=== PATIENT | female | born 1980 | race Caucasian/White ===

== ENCOUNTER 2022-01-31 14:10 | Emergency (ER) | payer MEDICAID, SELFPAY ==
[2022-01-31 14:11] VITALS: BP 184/113; PULSE 114; RESP 16; TEMP 36.3; O2SAT 99; BMI 27.1
--- NOTE | 2022-01-31 14:31 | EX.ED.VIS.HA ---
HPI History of Present Illness Chief Complaint: Headache Informant: patient Onset/Context/Timing Onset: Days (4 days) Context: Gradual Timing: Waxes and wanes Quality -Headache: Positive for Similar Prior Headaches and Throbbing Current Severity: Moderate Maximum Severity: Severe Narrative Narrative: Patient presents with 4-day history of migraine. She has history of similar migraines but states usually do not last this long. She is been trying ibuprofen without improvement. She does note some waxing and waning right vision changes. She has only had 1 prior migraine that resulted in vision change. She denies recent head injury or URI symptoms. [facility] Medical History Migraines Home Medications ciprofloxacin HCl 500 mg PO BID #14 tablet 06/20/17 [Rx Last Taken Unknown] dicyclomine 20 mg PO TIDAC #20 capsule 06/20/17 [Rx Last Taken Unknown] hydrocodone-acetaminophen 1 - 2 tab PO Q4H PRN PRN #12 tablet 06/20/17 [Rx Last Taken Unknown] metronidazole 500 mg PO Q6H #40 tab 06/20/17 [Rx Last Taken Unknown] promethazine 25 mg PO Q6H PRN PRN #10 tablet 06/20/17 [Rx Last Taken Unknown] sumatriptan succinate [Imitrex] See Rx Instructions .ROUTE .COMPLEX #14 tab 01/31/22 [Rx Last Taken Unknown] Allergy/AdvReac Type Severity Reaction Status Date / Time No Known Allergies Allergy Verified 01/31/22 14:11 Social History Smoking Status: Current every day smoker tobacco type: cigarettes ROS ROS ED Constitutional Constitutional ED: Denies chills or fever(s) Eyes Eyes: Reports change in vision ENT ENT ED: Denies sore throat Cardiovascular Cardiovascular: Denies chest pain Respiratory/Chest Respiratory/Chest: Denies cough or dyspnea Gastrointestinal Gastrointestinal: Reports nausea; Denies abdominal pain, diarrhea or vomiting Genitourinary Genitourinary ED: Denies dysuria Musculoskeletal Musculoskeletal: Denies back pain or neck pain Integumentary Denies rash Neurologic Neurologic: Reports headache(s); Denies paresthesias or weakness Psychiatric Psychiatric: Denies anxiety or depression Allergic/Immunologic Allergic/Immunologic ED: Denies urticaria EXAM Physical Exam Const Vital Signs: 01/31/22 14:11 01/31/22 18:04 01/31/22 18:13 Temperature 97.4 F L Temperature Source Temporal Pulse Rate 114 H 87 79 Respiratory Rate 16 18 18 Blood Pressure 184/113 H 164/146 H 159/108 H Blood Pressure Mean 136 152 125 Pulse Ox 99 98 99 Oxygen Delivery Method Room Air Room Air Room Air Positive well nourished and well developed General Appearance ED: well developed HEENT Reports moist mucous membranes Eyes PERRL and EOMs intact bilaterally Neck supple Resp normal respiratory effort and clear to auscultation bilaterally Cardio regular rate and regular rhythm GI non-tender Auscultation: normoactive bowel sounds Palpation: soft Extremity normal to inspection Neuro oriented x3 and no sensory deficits noted Sensorium / Orientation: awake and alert Motor Exam: strength 5/5 throughout Psych mental status grossly normal Skin Lesions: no lesions Rashes: no rashes MDM MDM MDM Narrative Medical decision making narrative: Patient was given Toradol, Reglan, Benadryl, IV fluids. Radiography Diagnostic Testing: Clinical Impression(s) from Imaging Studies Brain CT 01/31/22 15:42 IMPRESSION: Normal unenhanced CT scan of the brain. Electronically Signed: Sd Romero DO at 16:45 EDT Reading Location ID and State: [facility] / [place] Tel [phone], Service support , Treatment and Re-Evaluation Narrative: On repeat evaluation she still reported significant headache but did feel slightly sleepy from the Benadryl. At that time head CT was ordered along with a dose of Solu-Medrol and Depacon. Head CT is unremarkable. After the Solu-Medrol is infused patient reports significant improvement in her headache. She does not want the Depacon infusion. She will be discharged with a prescription for Imitrex that she has done well with this in the past. She is referred to local physician to establish primary care. Discharge Plan Triage Chief Complaint: Headache ED Provider: Heidi Adam Dx/Rx/DC Orders Clinical Impression: Migraine Instructions: ED, Migraine (Classical) Prescriptions: New sumatriptan succinate [Imitrex] 25 mg tablet See Rx Instructions .ROUTE .COMPLEX Qty: 14 RF: 0 No Action ciprofloxacin HCl 500 MG tablet 500 mg PO BID Qty: 14 RF: 0 metronidazole 500 MG tablet 500 mg PO Q6H Qty: 40 RF: 0 promethazine 25 MG tablet 25 mg PO Q6H PRN PRN (Reason: Nausea) Qty: 10 RF: 0 hydrocodone-acetaminophen 1 TABLET tablet 1 - 2 tab PO Q4H PRN PRN (Reason: Pain) Qty: 12 RF: 0 dicyclomine 10 MG capsule 20 mg PO TIDAC Qty: 20 RF: 0 Stand Alone Forms: ED Work / School Excuse Primary Care Provider: Care Physician,No Primary Referrals: Yosi Cooper MD [STAFF PHYSICIAN] - 1-2 Weeks Care Physician,No Primary [Primary Care Provider] - Disposition Disposition: Home, Self Care
[2022-01-31] MEDS: Ketorolac 30 MG/ML Syringe IV (14:50)
[2022-01-31] MEDS: Metoclopramide 10 MG/2 ML Vial IV (14:50)
[2022-01-31] MEDS: 0.9% Normal Saline 1,000 ML 999 ML IV (14:50)
[2022-01-31] MEDS: DiphenhydrAMINE 50 MG/ML Syringe 25 MG IV (14:50)
--- NOTE | 2022-01-31 15:42 | CT_ITS ---
STUDY: CT BRAIN WITHOUT CONTRAST REASON FOR EXAM: Female, 41 years old. Migraine RADIATION DOSAGE (If Supplied By Facility): CTDIvol = ( 44.99 ) mGy, DLP = ( 796.11 ) mGycm TECHNIQUE: Transaxial CT imaging of the brain was performed without administration of intravenous contrast material. Individualized dose optimization techniques were used for this CT. COMPARISON: No relevant priors. FINDINGS: Normal soft tissue structures. Normal calvarium. Normal size ventricles and extra-axial spaces for the patient''s age. Normal white matter tracts of the cerebral hemispheres. Normal basal ganglia and thalami. Normal brainstem. Normal cerebellum. There is no intracranial hemorrhage. There are no findings of an acute ischemic infarction. Left mastoid sinus retention cyst. CT/Brain/Head without Contrast IMPRESSION: Normal unenhanced CT scan of the brain. Electronically Signed: Sd Romero DO at 16:45 EDT ,
[2022-01-31 18:04] VITALS: BP 164/146; PULSE 87; RESP 18; O2SAT 98
[2022-01-31 18:13] VITALS: BP 159/108; PULSE 79; RESP 18; O2SAT 99
[2022-01-31 18:42] VITALS: BP 159/108; PULSE 79; RESP 18; O2SAT 99
== END 2022-01-31 18:43 | disposition home or self-care (01) ==
PROVIDERS: Emergency Provider Emergency Medicine; Visit Provider Emergency Medicine
DX: G43.909 Migraine, unspecified, not intractable, without status migrainosus (principal); F17.210 Nicotine dependence, cigarettes, uncomplicated
CPT/HCPCS: 70450; 96361; 96365; 96366; 96375; 99282; J7030; J2930

== ENCOUNTER 2022-08-13 17:09 | Emergency (ER) | payer MEDICAID, SELFPAY ==
[2022-08-13 17:12] VITALS: BP 171/108; PULSE 149; RESP 18; TEMP 36.7; O2SAT 100; BMI 27.0
--- NOTE | 2022-08-13 17:29 | EX.ED.GENINJ ---
HPI History of Present Illness Chief Complaint: Bite Narrative Narrative: Patient presents with facial lacerations after dog bite. Patient says that the dog bite was unprovoked, was a friend's dog however per paramedics apparently the patient had her hand and the dog's mouth. She tells me she had 1 drink today. No hand injuries or any other injuries. Tetanus is not up-to-date. [facility] Medical History Migraines Home Medications ciprofloxacin HCl 500 mg tablet 500 mg PO BID ##14 06/20/17 [Rx Last Taken Unknown] dicyclomine 10 mg capsule 20 mg PO TIDAC ##20 06/20/17 [Rx Last Taken Unknown] hydrocodone-acetaminophen 5-325mg 5mg-325mg 1 - 2 tab PO Q4H PRN PRN Pain ##12 06/20/17 [Rx Last Taken Unknown] metronidazole 500 mg tablet 500 mg PO Q6H #40 tabs 06/20/17 [Rx Last Taken Unknown] promethazine 25 mg tablet 25 mg PO Q6H PRN PRN Nausea ##10 06/20/17 [Rx Last Taken Unknown] sumatriptan succinate 25 mg tablet (Imitrex) See Rx Instructions PO .COMPLEX #14 tabs 01/31/22 [Rx Last Taken Unknown] amoxicillin 500 mg-potassium clavulanate 125 mg tablet (Augmentin) 1 tab PO Q8H #21 tabs 08/13/22 [Rx Last Taken Unknown] Allergy/AdvReac Type Severity Reaction Status Date / Time No Known Allergies Allergy Verified 08/13/22 17:16 Social History Smoking Status: Current every day smoker tobacco type: cigarettes ROS ROS ED ROS Narrative Social: Noncontributory Medications: Reviewed Past medical history: Reviewed Review of systems General: Patient has no head injury or loss of consciousness HEENT: Multiple facial lacerations in HPI Eye: Right eye blurred vision Neck: No neck pain Cardiovascular: Patient denies any chest pain or palpitations Chest wall: No chest wall contusions Respiratory: There is no shortness of breath GI: There is no nausea vomiting diarrhea or abdominal pain, no abdominal wall contusions Skin: No lacerations or abrasions Neurological: Patient has no memory loss, confusion, or any focal weakness Psychiatric: No recent behavioral changes Back: No back pain, no problems with ambulation Musculoskeletal: No extremity injury All other systems are reviewed and normal EXAM Physical Exam Narrative Exam Narrative: Physical exam Vitals reviewed General: Patient appears anxious HEENT: Small abrasion of the right eyelid, abrasion inferior lid. There is a small abrasion over the nose, lower lip has a vertical laceration about 2 cm it is through the vermilion border. Head: No head injury Eyes: Some erythema and conjunctivitis, after fluorescein staining I saw that there is a corneal abrasion about 2 mm right upper quadrant eye. Neck: No C-spine tenderness with full range of motion Heart: Regular rate normal pulses Chest wall: No chest wall pain Lungs clear lungs bilaterally with normal inspiration and expiration without tachypnea GI: Abdomen is soft and nontender there is no mass no guarding no abdominal wall contusion : Stable pelvis Musculoskeletal: Moves all extremities without any signs of trauma Skin: No abrasions or laceration Neurological: Patient is alert and oriented with no focal deficits Const Vital Signs: 08/13/22 17:12 Temperature 98.1 F Temperature Source Temporal Pulse Rate 149 H Respiratory Rate 18 Blood Pressure 171/108 H Blood Pressure Mean 129 Pulse Ox 100 Oxygen Delivery Method Room Air PROC Procedures Lacerations Lip laceration: Length: 0.98 in Depth: Skin Shape: Linear Prep: Shure-Clens Laceration repair: Irrigated and Lidocaine Number of Sutures/Erika: 4 Suture Information: Ethilon and 6-0 Comment: 1 suture was placed through the vermilion border with good alignment of the vermilion border, 3 more sutures were placed caudad to that, this was relatively loose approximation since it was a dog bite. MDM MDM MDM Narrative Medical decision making narrative: Patient has corneal abrasion, she has multiple lacerations of the face however only one it needed suturing since it was through the vermilion border and gaping. It was still a loose approximation because of a dog bite. Tetanus was updated. Antibiotics were given I will give ophthalmic antibiotic ointment also. She is to follow-up in 4 to 5 days for suture removal. Discharge Plan Triage Chief Complaint: Bite ED Provider: Chuy Powell Dx/Rx/DC Orders Clinical Impression: Abrasion, corneal, Dog bite, Laceration of lip Instructions: Corneal Injury, ED Dog Bite, ED Laceration, Lip or Mouth Prescriptions: New amoxicillin-pot clavulanate [Augmentin] 500-125 mg tablet 1 tab PO Q8H Qty: 21 0RF No Action ciprofloxacin HCl 500 MG tablet 500 mg PO BID Qty: 14 0RF metronidazole 500 MG tablet 500 mg PO Q6H Qty: 40 0RF promethazine 25 MG tablet 25 mg PO Q6H PRN PRN (Reason: Nausea) Qty: 10 0RF hydrocodone-acetaminophen 1 TABLET tablet 1 - 2 tab PO Q4H PRN PRN (Reason: Pain) Qty: 12 0RF dicyclomine 10 MG capsule 20 mg PO TIDAC Qty: 20 0RF sumatriptan succinate [Imitrex] 25 mg tablet See Rx Instructions .ROUTE .COMPLEX Qty: 14 0RF Rx Instructions: take 1 tab at onset of headache; if no relief may repeat 1 tab after at least 2 hrs; max = 4 tabs/24 hr Primary Care Provider: Care Physician,No Primary Referrals: Care Physician,No Primary [Primary Care Provider] - 3-5 Days suture removal Disposition Disposition: Home, Self Care
[2022-08-13] MEDS: Amox/Clavulanate 500 MG Tablet PO (17:38)
[2022-08-13] MEDS: Diphth,Pertuss(Acell),Tet Vac 0.5 ML Vial IM (17:38)
[2022-08-13] MEDS: Tetracaine 0.5% Ophthalmic Bottle 1 DRP EACH EYE (17:40)
[2022-08-13] MEDS: Fluorescein 1 MG STRIP 1 STRIP EACH EYE (17:41)
--- NOTE | 2022-08-13 18:23 | ED.RN ---
BACITRACIN APPLIED TO WOUNDS ON FACE
== END 2022-08-13 18:26 | disposition home or self-care (01) ==
PROVIDERS: Emergency Provider Emergency Medicine; Visit Provider Emergency Medicine
DX: S01.511A Laceration without foreign body of lip, initial encounter (principal); S00.211A Abrasion of right eyelid and periocular area, initial encounter; S00.31XA Abrasion of nose, initial encounter; W54.0XXA Bitten by dog, initial encounter; S05.01XA Injury of conjunctiva and corneal abrasion without foreign body, right eye, initial encounter; Z23 Encounter for immunization; F17.210 Nicotine dependence, cigarettes, uncomplicated
CPT/HCPCS: 90471; 90715; 96372; 99284